=== PATIENT | female | born 2000 | race Caucasian/White ===

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

== ENCOUNTER 2022-02-05 22:04 | Emergency (ER) | payer MEDICAID, SELFPAY ==
[2022-02-05 22:06] VITALS: BP 133/93; PULSE 137; RESP 14; TEMP 36.6; O2SAT 98
--- NOTE | 2022-02-05 22:22 | ED.GENADUL_ITS ---
Discharge Plan Disposition Patient Disposition: Home Condition: Stable Discharge Details Clinical Impression: Alcohol intoxication, Vomiting Primary Care Provider: Unknown,Unknown ED Provider: Ashlee Kessler Discharge Instructions Instructions: Alcohol Intoxication (ED), Acute Nausea and Vomiting (ED) Additional Instructions: You were given a liter of normal saline and some nausea medication. May take the nausea medication once every 8 hours or 3 times a day as needed for nausea vomiting. Your alcohol was largely above the legal limit. Do believe your symptoms are caused from combination of alcohol and drugs. Please abstain from drinking any alcohol for the next 24 to 48 hours. Please stay with someone that can observe you. Please return to the ER for any recurrent seizure-like activity, headache not relieved by Tylenol or ibuprofen. Follow up with primary care provider in 3-5 days. Return to ED sooner if any worsening or concerns. Increase oral fluids. Medical Decision Making 21-year-old female presents to the ER accompanied by her boyfriend with chief complaint of alcohol intoxication, altered mental status and possible seizure- like activity. Boyfriend reports that they had been drinking some wine and took a shot and or smoking marijuana when patient passed out rolled onto the floor had some seizure-like activity and began vomiting. Patient has no history of seizures. She does appear intoxicated is actively vomiting upon arrival. She does smell of EtOH, no signs of significant trauma noted denies any neck or back pain. CBC shows white blood cell count of 15.14, platelets 456, absolute lymphocytes 5.90, potassium 3.0 glucose 120 ethyl alcohol level 201.3 Patient reevaluation she is sleeping breathing eupneic. She awakens easily with verbal stimulus. She is received a liter of fluid and for Zofran. Patient was ambulatory to the wheelchair feeling better prior to discharge. I do suspect that this is combination of drugs and alcohol intoxication. Di scussed strict return instructions patient is discharged in the care of responsible adult to can observe her. Patient's 24-year-old sister is also here with them. Discussed tricked return instructions with family and friends who verbalized understanding and agreement with plan. This text was generated using [employer] system, please disregard any oddities of phrase or misspellings. Lab Data Lab results reviewed: Yes I reviewed the patient's lab results. Labs: Laboratory Tests Range/Units 02/05/22 02/05/22 22:30 22:30 WBC (4.4-10.8) 10^3/uL 15.14 H RBC (3.93-5.22) 10^6/uL 4.59 Hgb (11.2-15.7) g/dL 12.1 Hct (36.0-46.0) % 37.7 MCV (80-95) fL 82 MCH (27.0-33.0) pg 26.4 L MCHC (32.0-36.0) % 32.1 RDW (11.7-14.6) % 14.8 H Plt Count (130-400) 10^3/uL 456 H MPV (8.0-11.0) fL 8.4 Immature Gran % 0.0 Neutrophils % 54.0 Lymphocytes % 37.0 Atypical Lymphs % 2 Monocytes % 6.0 Eosinophils % 1.0 Basophils % 0.0 Nucleated RBC % (0.0-0.3) % 0.0 Absolute Neutrophils (1.2-6.7) 10^3/uL 8.18 H Absolute Lymphocytes (1.2-3.4) 10^3/uL 5.90 H Absolute Monocytes (0.1-0.8) 10^3/uL 0.91 H Absolute Eosinophils (0.0-0.7) 10^3/uL 0.15 Absolute Basophils (0.0-0.2) 10^3/uL 0.00 RBC Morphology Normal Sodium (136-145) mmol/L 141 Potassium (3.5-5.1) mmol/L 3.0 L Chloride (98-107) mmol/L 104 Carbon Dioxide (21.0-32.0) mmol/L 18.3 L Anion Gap (3-11) mmol/L 18.7 H BUN (7-18) mg/dL 9 Creatinine (0.55-1.02) mg/dL 0.8 Est GFR (CKD-EPI 2020) (mL/min/1.73m2) 108.78 Glucose (74-106) mg/dL 120 H Calcium (8.5-10.1) mg/dL 9.2 Total Bilirubin (0.2-1.0) mg/dL 0.2 AST (15-37) U/L 20 ALT (14-59) U/L 17 Alkaline Phosphatase (46-116) U/L 69 Total Protein (6.4-8.2) g/dL 8.3 H Albumin (3.4-5.0) g/dL 4.2 Ethyl Alcohol (<10) mg/dL 201.3 H HPI General Mode of arrival: wheelchair (Carried) . Date/Time Provider Initiated Documentation: 02/05/22 22:05 . Limitations to Documentation: altered mental status and physical limitation (Appears intoxicated) . Information obtained by: patient, family (Boyfriend) and RN notes reviewed . HPI Narrative: 21-year-old female presents to the ER accompanied by her boyfriend with chief complaint of alcohol intoxication, altered mental status and possible seizure- like activity. Boyfriend reports that they had been drinking some wine and took a shot and or smoking marijuana when patient passed out rolled onto the floor had some seizure-like activity and began vomiting. Patient has no history of seizures. She does appear intoxicated is actively vomiting upon arrival. She does smell of EtOH, no signs of significant trauma noted denies any neck or back pain. Pupils are equal bilaterally, 6 mm and sluggish. General Stated Complaint: Seizure MAGALI: 3 Review of Systems Narrative: History somewhat limited due to patient intoxication. Majority of history supplied by boyfriend. Constitutional Constitutional: Denies headache(s) ENT Ears, Nose, Mouth, and Throat: Denies headache(s) Gastrointestinal Gastrointestinal: Denies abdominal pain, Reports nausea and Reports vomiting Neurologic Neurologic: Denies headache(s) PFSH All Active Problems (Updated 02/05/22 @ 23:45 by Ashlee Kessler NP) Alcohol intoxication (Acute) Vomiting (Acute) Social History Smoking risk assessment performed?: No Exam Narrative Exam Narrative: Constitutional: Alert and oriented x3. Appears stated age. Normal body habitus. Patient actively vomiting upon initial presentation. Head: Normocephalic, no trauma. Eyes: Pupils PERRL, approximately 4 mm bilaterally and sluggish, Red reflex noted, EOM's intact. Eyelids symmetrical without lesions, discharge, or swelling. ENT: Bilateral TM's WNL, External ear normal to inspection, no mastoid TTP, swelling, or erythema, Nasal turbinates WNL, no nasal discharge. Normal dentition, Posterior pharynx WNL, no exudate. Chest: RRR, Normal S1, S2, distal pulses intact. Resp: Lungs clear to auscultation bilaterally, no wheezes, rales, or rhonchi. Abdomen: Soft, non-distended, Normoactive bowel sounds all 4 quads. Musculoskeletal: Ataxic gait, 5/5 strength to all four extremities. Skin: No suspicious rashes or lesions. Capillary refill less than 2 sec. Neurologic: Cranial nerves II-XII intact. Alert and oriented x 3. Motor: No deficits noted. Sensory: Intact bilaterally all 4 extremities. Reflexes: DTR's intact bilaterally.. Hematologic/Lymphatic: No ecchymosis, no lymphadenopathy. Course Vital Signs Vital signs: Vital Signs Temperature 36.6 C 02/05/22 22:06 Pulse 137 H 02/05/22 22:06 Respiratory Rate 14 02/05/22 22:06 Blood Pressure 133/93 H 02/05/22 22:06 Pulse Oximetry 98 02/05/22 22:06 Temperature 36.6 C 02/05/22 22:06 Temperature Source Temporal Artery Scan 02/05/22 22:06 Pulse 137 H 02/05/22 22:06 Respiratory Rate 14 02/05/22 22:06 Respiratory Effort 02/05/22 22:12 Blood Pressure 133/93 H 02/05/22 22:06 Blood Pressure Position Sitting 02/05/22 22:06 Pulse Oximetry 98 02/05/22 22:06 Oxygen Delivery Method Room Air 02/05/22 22:06 Oxygen Flow Rate 0 02/05/22 22:06 Pain Level 5 02/05/22 22:06 PAWSS Have you Been Recently Intoxicated or Drunk Within the Last 30 days?: Yes Result: 1
[2022-02-05 22:43] LABS: Abs Immature Grans 0.07 10^3/uL (0.0-0.06); HCT 37.7 % (36.0-46.0); HGB 12.1 g/dL (11.2-15.7); MCH 26.4 pg (27.0-33.0); MCHC 32.1 % (32.0-36.0); MCV 82 fL (80-95); MPV 8.4 fL (8.0-11.0); Platelet Count 456 10^3/uL (130-400); RBC 4.59 10^6/uL (3.93-5.22); RDW 14.8 % (11.7-14.6); RDW-SD 44.6 fL; WBC 15.14 10^3/uL (4.4-10.8)
[2022-02-05] MEDS: Normal Saline 1,000 ML 1000 ML IV (22:50)
[2022-02-05] MEDS: Ondansetron 4 MG/2 ML VIAL IVP (22:52)
[2022-02-05 22:56] LABS: Absolute Eosinophil Count 0.15 10^3/uL (0.0-0.7); Absolute Monocyte Count 0.91 10^3/uL (0.1-0.8); Absolute Neutrophil Count 8.18 10^3/uL (1.2-6.7); Atypical Lymphocytes % 2; Diff Comment Manual Differential; RBC Morphology Normal
[2022-02-05 23:02] LABS: ALT 17 U/L (14-59); AST 20 U/L (15-37); Albumin 4.2 g/dL (3.4-5.0); Alkaline Phosphatase 69 U/L (46-116); Anion Gap 18.7 mmol/L (3-11); BUN 9 mg/dL (7-18); Bilirubin, Total 0.2 mg/dL (0.2-1.0); CO2 18.3 mmol/L (21.0-32.0); CREATININE 0.8 mg/dL (0.55-1.02); Calcium 9.2 mg/dL (8.5-10.1); Chloride 104 mmol/L (98-107); ETHANOL BLOOD 201.3 mg/dL (<10); Estimated GFR 108.78 (mL/min/1.73m2); Glucose 120 mg/dL (74-106); Sodium 141 mmol/L (136-145); Total Protein 8.3 g/dL (6.4-8.2)
[2022-02-05 23:38] VITALS: BP 106/69; PULSE 84; RESP 12; O2SAT 98
== END 2022-02-06 01:43 | disposition home or self-care (01) ==
PROVIDERS: Emergency Provider Registered Nurse Emergency
DX: F10.129 Alcohol abuse with intoxication, unspecified (principal); R41.82 Altered mental status, unspecified; R11.10 Vomiting, unspecified; Y90.7 Blood alcohol level of 200-239 mg/100 ml
CPT/HCPCS: 80053; 96361; 96374; 99284; 80320; 85025; J2405

== ENCOUNTER 2022-02-21 09:07 | Emergency (ER) | payer MEDICAID, SELFPAY ==
[2022-02-21 09:27] VITALS: BP 124/71; PULSE 96; RESP 16; TEMP 37.2; O2SAT 99
--- NOTE | 2022-02-21 09:30 | ED.GENADUL_ITS ---
Discharge Plan Disposition Patient Disposition: Home Condition: Stable Discharge Details Chief Complaint: Orthopedic Clinical Impression: Fracture of fifth metatarsal bone Primary Care Provider: Unknown,Unknown ED Provider: Thony Chin Home Meds and New Rx's Prescriptions: No Action escitalopram oxalate [Lexapro] 20 mg Tablet 20 mg PO DAILY Discharge Instructions Instructions: Foot Fracture in Adults (ED) Additional Instructions: Please use boot and crutches as instructed. Ice and elevate foot when at rest. Follow-up with orthopedic team as scheduled. Return to the emergency department for any worsening symptoms. Stand Alone Forms: Work Release Medical Decision Making 21-year-old female presents with inversion injury to the left lower extremity, pain to lateral foot and lateral ankle, has not been able to bear weight due to discomfort. DP pulse intact sensation intact, moderate amount of swelling to lateral aspect of foot and ankle with lateral malleoli or tenderness, no fibular head tenderness no knee involvement full range of motion knee and hip. Concern for high-grade ankle sprain versus metatarsal fracture versus ankle fracture lower suspicion for dislocation. Neurovascular exam intact. Will administer anti-inflammatory/analgesic. Will obtain x-ray of ankle and foot. Disposition likely home pending imaging results 10: 34 patient resting comfortably no acute distress. Evidence of proximal left fifth metatarsal fracture zone 1, pseudo Keo's; patient counseled regarding assisted/protected weightbearing as tolerated, placed in boot given crutch training. Home care instructions such as elevation ice and analgesia given. Will be referred for follow-up with orthopedic team. Return precautions given HPI General Date/Time Provider Initiated Documentation: 02/21/22 09:21 . HPI Narrative: 21-year-old female presents after inversion left ankle injury tripped of her cat last night, pain to lateral aspect of foot and ankle, has not been able to bear weight on foot since then. No other injuries. Related Data Home Medications Medication Instructions Recorded Confirmed escitalopram oxalate 20 mg tablet 20 mg PO DAILY 02/21/22 02/21/22 (Lexapro) Allergies Allergy/AdvReac Type Severity Reaction Status Date / Time No Known Allergies Allergy Unverified 02/21/22 09:29 General Stated Complaint: Orthopedic MAGALI: 4 Review of Systems Narrative: Review of Systems Constitutional: negative Eyes: negative ENT: negative Cardiovascular: negative Respiratory: negative Gastrointestinal: negative : negative Musculoskeletal: Ankle pain, foot pain Skin: negative Neurologic: negative Psych: negative PFSH All Active Problems (Updated 02/21/22 @ 10:38 by Thony Chin MD) Alcohol intoxication (Acute) Vomiting (Acute) Fracture of fifth metatarsal bone (Acute) Social History Smoking/Tobacco Use Status: Never Smoking risk assessment performed?: Yes Alcohol Intake: current Alcohol Intake frequency: a few times a month Alcohol type: beer Drug use: Daily Substance use type: marijuana Do you feel safe at home: Yes Do you feel safe in your relationship?: Yes Exam Narrative Exam Narrative: Physical Examination General: alert, awake, cooperative, resting comfortably, no acute distress Skin: no lesions, rashes or trauma appreciated Neuro: AAOx3, normal speech, moving all extremities Extremities: Pain to lateral aspect of foot and lateral ankle, swelling over lateral aspect of foot, tenderness over lateral metatarsals, tenderness over lateral malleolus; no fibular head tenderness, range of motion knee intact, DP pulse in foot intact, sensation in foot and toes intact. Unable to bear weight due to pain Psych: Appropriate mood and affect Course Vital Signs Vital signs: Vital Signs Temperature 37.2 C 02/21/22 09:27 Pulse 96 H 02/21/22 09:27 Respiratory Rate 16 02/21/22 09:27 Blood Pressure 124/71 02/21/22 09:27 Pulse Oximetry 99 02/21/22 09:27 Temperature 37.2 C 02/21/22 09:27 Temperature Source Temporal Artery Scan 02/21/22 09:27 Pulse 96 H 02/21/22 09:27 Respiratory Rate 16 02/21/22 09:27 Blood Pressure 124/71 02/21/22 09:27 Blood Pressure Position Sitting 02/21/22 09:27 Pulse Oximetry 99 02/21/22 09:27 Oxygen Delivery Method Room Air 02/21/22 09:27 Oxygen Flow Rate 0 02/21/22 09:27 Pain Level 7 02/21/22 09:27
[2022-02-21] MEDS: Ketorolac 15 MG/ML VIAL IM (09:34)
--- NOTE | 2022-02-21 09:45 | DI.RAD_ITS ---
Exam(s) XR FOOT LT COMPLETE XR ANKLE LT COMPLETE EXAM: XR FOOT LT COMPLETE and XR ankle LT complete CLINICAL HISTORY: fall, lateral foot pain. TECHNIQUE: 2D digital imaging was performed of the left foot. Six images were obtained. AP, obliqu e and lateral views were obtained. COMPARISON: None. FINDINGS: BONES: There is an acute nondisplaced fracture of the base of the 5th metatarsal. No bony destructiv e lesion is seen. JOINTS: No dislocation present. SOFT TISSUE: There is mild soft tissue swelling or around the fracture site. IMPRESSION: Nondisplaced fracture of the proximal 5th metatarsal. DATA REPOSITORY: RADIATION DOSE DELIVERED:
--- NOTE | 2022-02-21 10:16 | DI.VRAD_ITS ---
PROCEDURE INFORMATION: Exam: XR Left Ankle Exam date and time: 02/21/2022 9:51 AM Age: 21 years old Clinical indication: Injury or trauma; Fall; Sprain or strain; Ankle and foot; Left TECHNIQUE: Imaging protocol: Radiologic exam of the Left ankle. Views: 3 or more views. COMPARISON: CR XR FOOT LT COMPLETE 02/21/2022 9:48 AM FINDINGS: Bones/joints: Acute nondisplaced fracture of proximal 5th metatarsal with adjacent mild soft tissue swelling/induration. No malalignment. Intact ankle mortise. Soft tissues: See Bones/joints finding. IMPRESSION: Acute fracture of proximal 5th metatarsal. Dictated and Authenticated by: Darvin Bender MD. Ordering:JOSE DE JESUS Bhandari MD
--- NOTE | 2022-02-21 10:18 | DI.VRAD_ITS ---
PROCEDURE INFORMATION: Exam: XR Left Foot Exam date and time: 02/21/2022 9:48 AM Age: 21 years old Clinical indication: Injury or trauma; Fall; Sprain or strain; Ankle and foot; Left TECHNIQUE: Imaging protocol: Radiologic exam of the Left foot. Views: 3 or more views. COMPARISON: No relevant prior studies available. FINDINGS: Bones/joints: Acute nondisplaced fracture of proximal 5th metatarsal with adjacent mild soft tissue swelling/induration. No dislocation. Joint spaces are maintained. Soft tissues: See Bones/joints finding. IMPRESSION: Acute fracture of proximal 5th metatarsal. Dictated and Authenticated by: Darvin Bender MD. Ordering:JOSE DE JESUS Bhandari MD
== END 2022-02-21 10:53 | disposition home or self-care (01) ==
PROVIDERS: Emergency Provider Emergency Medicine
DX: S92.352A Displaced fracture of fifth metatarsal bone, left foot, initial encounter for closed fracture (principal); W01.0XXA Fall on same level from slipping, tripping and stumbling without subsequent striking against object, initial encounter
CPT/HCPCS: 96372; 99284; 73610; 73630; J1885

== ENCOUNTER 2022-02-24 21:09 | Outpatient (REF) | payer MEDICAID, SELFPAY ==
[2022-02-26 13:51] LABS: COVID-19 RT-PCR UVMMC Result Negative (Negative)
== END 2022-02-24 21:10 | disposition home or self-care (01) ==
LOC: LBN 21:09
PROVIDERS: Visit Provider Physician Assistant Medical
DX: Z20.822 Contact with and (suspected) exposure to COVID-19 (principal); J02.9 Acute pharyngitis, unspecified
CPT/HCPCS: U0003

== ENCOUNTER 2022-03-08 10:39 | Outpatient (CLI) | payer MEDICAID, SELFPAY ==
--- NOTE | 2022-03-08 10:30 | DI.RAD_ITS ---
Exam(s) XR FOOT LT COMPLETE EXAM: XR FOOT LT COMPLETE CLINICAL HISTORY: F/U 5TH METATARSAL FRACTURE. TECHNIQUE: 2D digital imaging was performed of the left foot. Three images were obtained. AP, obli que and lateral views were obtained. COMPARISON: CR,XR XR FOOT LT COMPLETE from 02/21/2022 FINDINGS: BONES: There has been no change in alignment of the fracture in the base of the 5th metatarsal. No n ew fracture is seen. No bony destructive lesion is seen. JOINTS: No dislocation present. SOFT TISSUE: Normal. IMPRESSION: Stable 5th metatarsal fracture. DATA REPOSITORY: RADIATION DOSE DELIVERED:
== END 2022-03-08 10:40 | disposition home or self-care (01) ==
LOC: DIORS 10:39
PROVIDERS: Visit Provider Student in an Organized Health Care Education/Training Program
DX: S92.352D Displaced fracture of fifth metatarsal bone, left foot, subsequent encounter for fracture with routine healing (principal); W01.0XXD Fall on same level from slipping, tripping and stumbling without subsequent striking against object, subsequent encounter
CPT/HCPCS: 73630

== ENCOUNTER 2022-04-05 10:22 | Outpatient (CLI) | payer MEDICAID, SELFPAY ==
--- NOTE | 2022-04-05 08:15 | DI.RAD_ITS ---
Exam(s) XR FOOT LT COMPLETE EXAM: XR FOOT LT COMPLETE CLINICAL HISTORY: left foot fracture. TECHNIQUE: 2D digital imaging was performed of the left foot. Three images were obtained. AP, obli que and lateral views were obtained. COMPARISON: CR,XR XR FOOT LT COMPLETE from 02/21/2022 CR XR FOOT LT COMPLETE from 03/08/2022 FINDINGS: BONES: There has been no change in alignment of the fracture through the base of the 5th metatarsal. The fracture line is still visualized. No bony destructive lesion is seen. JOINTS: No dislocation present. SOFT TISSUE: Normal. IMPRESSION: Stable 5th metatarsal fracture. DATA REPOSITORY: RADIATION DOSE DELIVERED:
== END 2022-04-05 10:23 | disposition home or self-care (01) ==
LOC: DIORS 10:24
PROVIDERS: PCP Family Medicine; Referring Provider Family Medicine; Visit Provider Physician Assistant
DX: S92.352D Displaced fracture of fifth metatarsal bone, left foot, subsequent encounter for fracture with routine healing (principal); X58.XXXD Exposure to other specified factors, subsequent encounter
CPT/HCPCS: 73630

== ENCOUNTER 2022-12-27 17:44 | Outpatient (REF) | payer MEDICAID, SELFPAY ==
[2022-12-29 10:25] LABS: HIV-1/2 Ag & Ab Screen Negative (Negative)
[2022-12-29 10:35] LABS: Hepatitis C Ab w Rflx HCV PCR Negative (Negative)
[2022-12-29 10:49] LABS: Syphilis Serology (RPR) Negative (Negative)
[2022-12-29 13:06] LABS: Chlamydia Result Negative (Negative); GC Result Negative (Negative)
== END 2022-12-27 17:45 | disposition home or self-care (01) ==
LOC: LBN 17:44
PROVIDERS: PCP Family Medicine; Visit Provider Nurse Practitioner Family
DX: N76.0 Acute vaginitis (principal); Z11.3 Encounter for screening for infections with a predominantly sexual mode of transmission; Z11.4 Encounter for screening for human immunodeficiency virus [HIV]; Z11.59 Encounter for screening for other viral diseases
CPT/HCPCS: 86803; 87389; 87491; 87591; 86592; 87480; 87510; 87660